=== PATIENT | female | born 1960 | race Caucasian/White ===

== ENCOUNTER → 2024-12-23 11:55 | Outpatient (BNVA) | payer MEDICARE, SELFPAY | PROVIDERS: PCP Nurse Practitioner Family; Visit Provider Nurse Practitioner Family | DX: R73.03 Prediabetes (principal) | CPT/HCPCS: 80053; 80061; 82306; 82607; 83036; 84443; 85025 ==

== ENCOUNTER 2024-12-29 14:55 | Outpatient (CLI) | payer MEDICARE, SELFPAY ==
--- NOTE | 2024-12-29 15:30 | XR_ITS ---
WS: [id number] SCREENING DEXA SCAN [employer] CLINICAL INFORMATION: Z78.0 - Asymptomatic menopausal state COMPARISON: None. FINDINGS: The L1-L4 bone mineral density measures 1.340 g/cm2. This corresponds to a T score score of 1.3 and Z score of 2.7. Left femoral neck bone mineral density measures 0.799 g/cm2. This corresponds to a T score of -1.7 and Z score of -0.6. Right femoral neck bone mineral density measures 0.798 g/cm2. This corresponds to a T score -1.7of and Z score of -0.6. Mean femoral neck bone mineral density measures 0.798 g/cm2. This corresponds to a T score of -1.7 and Z score of -0.6. XR/XR DEXA axial skeleton* [id number] IMPRESSION: Normal bone mineralization lumbar spine. Osteopenia femoral necks. Patient's FRAX calculated 10 year probability for major osteoporotic fracture i s 8.6% and osteoporotic hip fracture is 1.4%.
== END 2024-12-29 14:56 | disposition home or self-care (01) ==
PROVIDERS: PCP Nurse Practitioner Family; Visit Provider Nurse Practitioner Family
DX: Z78.0 Asymptomatic menopausal state (principal); M85.88 Other specified disorders of bone density and structure, other site
CPT/HCPCS: 77080

== ENCOUNTER 2025-01-04 19:29 | Emergency (ER) | payer MEDICARE, SELFPAY ==
[2025-01-04 19:31] VITALS: BP 135/81; PULSE 91; RESP 16; TEMP 36.8; O2SAT 98
--- NOTE | 2025-01-04 19:38 | CTR_ITS ---
PROCEDURE INFORMATION: Exam: CT Abdomen And Pelvis With Contrast Exam date and time: 01/04/2025 7:58 PM Age: 64 years old Clinical indication: Abdominal pain; Generalized; Additional info: Abd pain TECHNIQUE: Imaging protocol: Computed tomography of the abdomen and pelvis with contrast. Radiation optimization: All CT scans at this facility use at least one of these dose optimization techniques: automated exposure control; mA and/or kV adjustment per patient size (includes targeted exams where dose is matched to clinical indication); or iterative reconstruction. Contrast material: OMNI 350; Contrast volume: 100 ml; Contrast route: INTRAVENOUS (IV); COMPARISON: No relevant prior studies available. RADIATION DOSE METRICS: Total DLP (mGy-cm): 520.3 FINDINGS: Lungs: Lung bases are clear. No pleural effusion. Liver: Normal. No mass. Gallbladder and biliary ducts: Normal. No calcified stones. No ductal dilation. Pancreas: Normal. No ductal dilation. Spleen: Normal. No splenomegaly. Adrenal glands: Normal. No mass. Kidneys and ureters: Normal. No hydronephrosis. Stomach and bowel: Unremarkable. No obstruction. No mucosal thickening. Appendix: No evidence of appendicitis. Intraperitoneal space: Unremarkable. No free air. No significant fluid collection. Vasculature: Unremarkable. No abdominal aortic aneurysm. Lymph nodes: Unremarkable. No enlarged lymph nodes. Urinary bladder: Unremarkable as visualized. Reproductive: Unremarkable as visualized. Bones/joints: Unremarkable. No acute fracture. Soft tissues: Unremarkable. CT/CT abdomen pelvis w con* [id number] IMPRESSION: No acute findings.
--- NOTE | 2025-01-04 19:39 | W.ED.ABDPA2 ---
HPI - Abdominal Pain General: Chief Complaint: Abdominal Pain Stated Complaint: Possible Food Poison Time Seen by Provider: 01/04/25 19:37 Source: patient Mode of arrival: ambulatory Limitations: no limitations History of Present Illness: 64-year-old female states she ate fish for lunch since in the been having vomiting along with nausea and abdominal cramping. States she had multiple episodes of vomiting denies any worse or improving factors denies any fevers. Associated Symptoms: Reports nausea and vomiting; Denies chills, diarrhea, dysuria and fever(s) Related Data Home Medications ?Medication ?Instructions ?Recorded ?Confirmed naproxen sodium 220 mg capsule 220 mg PO BID PRN 10/09/19 12/23/24 (Aleve) Previous Rx's ?Medication ?Instructions ?Recorded hydrocodone 5 mg-acetaminophen 325 1 tab PO Q6H PRN pain #14 tabs 01/04/25 mg tablet ondansetron 4 mg disintegrating 4 mg PO Q6H PRN nausea and 01/04/25 tablet vomiting #14 tabs Allergies Allergy/AdvReac Type Severity Reaction Status Date / Time No Known Allergies Allergy Verified 12/23/24 10:22 Review of Systems Const: Denies: fever(s), chills, body aches or change in appetite ENMT: Denies: throat pain or dental pain Card: Denies: chest pain Resp: Denies: dyspnea GI: Reports: abdominal pain, nausea and vomiting; Denies: diarrhea : Denies: dysuria Musc: Denies: neck pain or back pain Skin/Breast: Denies: rash Neuro: Denies: headache(s) PFSH ED PFSH: Surgical History Hx of right knee surgery Hx of tonsillectomy Family History (Updated 12/23/24 @ 10:28 by Trudy Alexander) Mother Uterine cancer Diabetes Father Diabetes Stroke Social History Smoking and tobacco/nicotine status: current every day tobacco/nicotine user (1 08/13 PPD) cigarettes Packs smoked per day: 1.5 Years cigarettes smoked: 47 Alcohol intake: current Alcohol intake frequency: holidays/special occasions only Alcohol type: beer and other Substance/Drug Use: never Lives independently: Yes Household members: spouse Marital status: service: No Current occupational status: retired Current gender identity: Female Anitra/Restoration: Catholic Special anitra needs: No Agree to transfusion: Yes Physical Exam Const: COMMON NORMALS: no acute distress, patient oriented x3 and healthy appearing HENMT: COMMON NORMALS: normocephalic and atraumatic HEAD & SCALP: normocephalic and atraumatic Neck/C-Spine: COMMON NORMALS: full ROM and supple Chest: COMMONS NORMALS: normal inspection of the chest Resp: COMMON NORMALS: normal respiratory effort, No retractions, No use of accessory muscles and clear to auscultation bilaterally AUSCULTATION: clear to auscultation bilaterally Cardio: COMMON NORMALS: regular rate, regular rhythm and No murmurs present (Cardio) RATE: regular rate RHYTHM: regular rhythm GI: COMMON NORMALS: Normal to inspection, nondistended, normoactive bowel sounds present, Soft to palpation, non-tender and no masses PALPATION: Yes Soft to palpation Extremity: COMMON NORMALS: normal to inspection and full ROM Neuro: COMMON NORMALS: patient oriented x3, moves all extremities and no focal motor deficits Psych: COMMON NORMALS: mental status grossly normal, Normal thought process present and cooperative THOUGHT PROCESS: Normal thought process present Skin: COMMON NORMALS: no rashes or lesions noted and no wounds GENERAL SKIN EXAM: no rashes or lesions noted Course Vital Signs: Vital signs: Vital Signs Temperature 98.2 F 01/04/25 19:31 Pulse Rate 81 01/04/25 20:38 Respiratory Rate 16 01/04/25 20:38 Blood Pressure 137/70 01/04/25 20:38 Pulse Oximetry 95 01/04/25 20:38 Oxygen Delivery Me thod Room Air 01/04/25 20:38 MDM - Abdominal Pain Medical Decision Making Patient presents with abdominal pain along with vomiting she feels much improved here after meds. She does have an elevated lipase level likely mild pancreatitis CT showed no signs of pancreatitis I did offer her admission she states she wants to go home she is to do a full liquid diet will prescribe her pain and nausea medicine she is return if worsening she understands agrees to plan. Medical Records I reviewed the patient's medical records. Lab Data I reviewed the patient's lab results. 01/04/25 19:48 01/04/25 19:48 Labs/Radiology: Radiology Impressions Abdomen/Pelvis CT 01/04/25 19:38 IMPRESSION: No acute findings. Laboratory Results WBC 10.38 10^3/uL (3.29-11.43) 01/04/25 19:48 RBC 4.66 10^6/uL (3.85-5.65) 01/04/25 19:48 Hgb 14.70 g/dL (11.27-16.99) 01/04/25 19:48 Hct 43.9 % (36-47) 01/04/25 19:48 MCV 94.2 fl (85-98) 01/04/25 19:48 MCH 31.5 pg (27-33) 01/04/25 19:48 MCHC 33.5 g/dL (30-55) 01/04/25 19:48 RDW 13.2 % (12.1-15.1) 01/04/25 19:48 Plt Count 335 10^3/cmm (157-399) 01/04/25 19:48 MPV 10.0 fL (7.4-10.4) 01/04/25 19:48 Neut % (Auto) 84.3 % 01/04/25 19:48 Lymph % (Auto) 9.9 % 01/04/25 19:48 [place] % (Auto) 4.9 % 01/04/25 19:48 Eos % (Auto) 0.2 % 01/04/25 19:48 Baso % (Auto) 0.4 % 01/04/25 19:48 Neut # (Auto) 8.75 10^3/uL (1.8-7.7) H 01/04/25 19:48 Lymph # (Auto) 1.0 10^3/uL (0.8-4.8) 01/04/25 19:48 [place] # (Auto) 0.5 10^3/uL (0.2-0.9) 01/04/25 19:48 Eos # (Auto) 0.0 10^3/uL (0.0-0.8) 01/04/25 19:48 Baso # (Auto) 0.0 10^3/uL (0.0-0.1) 01/04/25 19:48 Nucleated RBC % (auto) 0 % 01/04/25 19:48 Nucleated RBCs # 0.0 /100WBC 01/04/25 19:48 Sodium 139 mmol/L (136-145) 01/04/25 19:48 Potassium 4.2 mmol/L (3.5-5.1) 01/04/25 19:48 Chloride 103 mmol/L (98-107) 01/04/25 19:48 Carbon Dioxide 26 mmol/L (22-29) 01/04/25 19:48 Anion Gap 14.2 (5-19) 01/04/25 19:48 BUN 31 mg/dL (8-23) H 01/04/25 19:48 Creatinine 0.6 mg/dL (0.5-0.9) 01/04/25 19:48 GFR Calculation 100.3 mL/min (90-130) 01/04/25 19:48 Glucose 153 mg/dL (65-115) H 01/04/25 19:48 Calculated Osmolality 298 mOsm/kg (285-295) H 01/04/25 19:48 Lactic Acid 0.9 mmol/L (0.5-2.2) 01/04/25 19:48 Calcium 9.7 mg/dL (8.5-10.5) 01/04/25 19:48 Total Bilirubin 0.2 mg/dL (0.15-1.2) 01/04/25 19:48 AST 13 U/L (0-32) 01/04/25 19:48 ALT 13 U/L (0-33) 01/04/25 19:48 Alkaline Phosphatase 63 U/L (35-105) 01/04/25 19:48 Total Protein 7.1 g/dL (6.6-8.7) 01/04/25 19:48 Albumin 4.2 g/dL (3.5-5.2) 01/04/25 19:48 Globulin 2.9 g/dL (1.3-4.6) 01/04/25 19:48 Lipase 743 U/L (13-60) H 01/04/25 19:48 All radiology interpretation(s) finalized by discharge Discharge Plan Discharge Patient Disposition: Home Clinical Impression: Vomiting, Pancreatitis Condition: Stable Prescriptions: New hydrocodone-acetaminophen 5-325 mg tablet 1 tab PO Q6H PRN (Reason: pain) Qty: 14 0RF ondansetron 4 mg tablet,disintegrating 4 mg PO Q6H PRN (Reason: nausea and vomiting) Qty: 14 0RF No Action naproxen sodium [Aleve] 220 mg capsule 220 mg PO BID PRN Discharge Orders: Discharge ED (Routine); Ordered 01/04/25 Ordered By: Chad Wright Referrals: Ale Schumacher FNP [Primary Care Provider, [facility]] - 1-3 days Discharge Diet: Advance as tolerated Discharge Activity: Resume usual activity Patient Instructions: Pancreatitis (ED), Opioid Safety Print Language: Sinhala Coding Level of Care Code ED Air Conditioner Installer Helper for Jayden Landeros
[2025-01-04 19:47] VITALS: RESP 17
[2025-01-04] MEDS: ondansetron 2 mg/ML SDV 2 mL 4 MG IVP (19:47)
[2025-01-04] MEDS: morphine 4 mg/mL SDV 1 mL IVP (19:47)
[2025-01-04] MEDS: sodium chloride 0.9% 1,000 ML 999 ML IV (19:48)
[2025-01-04] MEDS: iohexol 350 mg/mL 500 mL Btl (per mL) IV (20:00)
[2025-01-04 20:01] LABS: Basophils % 0.4 %; Eosinophils % 0.2 %; Hematocrit 43.9 % (36-47); Lymphocytes % 9.9 %; Mean Corpuscular HGB Conc 33.5 g/dL (30-55); Mean Corpuscular Hemoglobin 31.5 pg (27-33); Mean Corpuscular Volume 94.2 fl (85-98); Monocytes # 0.5 10^3/uL (0.2-0.9); Monocytes % 4.9 %; Neutrophils # 8.75 10^3/uL (1.8-7.7); Neutrophils % 84.3 %; Nucleated Red Blood Cells % 0 %; Platelet Count 335 10^3/cmm (157-399); Red Blood Count 4.66 10^6/uL (3.85-5.65); Red Cell Distribution Width 13.2 % (12.1-15.1); White Blood Count 10.38 10^3/uL (3.29-11.43)
[2025-01-04 20:19] LABS: Lactic Sepsis W/Reflex 0.9 mmol/L (0.5-2.2)
[2025-01-04 20:20] LABS: Alanine Aminotransferase 13 U/L (0-33); Albumin Level 4.2 g/dL (3.5-5.2); Alkaline Phosphatase 63 U/L (35-105); Anion Gap 14.2 (5-19); Aspartate Amino Transferase 13 U/L (0-32); Blood Urea Nitrogen 31 mg/dL (8-23); Calcium 9.7 mg/dL (8.5-10.5); Carbon Dioxide 26 mmol/L (22-29); Chloride 103 mmol/L (98-107); Creatinine Clr Calc Pharmacy 65.9224; Globulin 2.9 g/dL (1.3-4.6); Glomerular Filtration Rate 100.3 mL/min (90-130); Glucose 153 mg/dL (65-115); Osmolality Calculated 298 mOsm/kg (285-295); Potassium 4.2 mmol/L (3.5-5.1); Sodium 139 mmol/L (136-145); Total Bilirubin 0.2 mg/dL (0.15-1.2); Total Protein 7.1 g/dL (6.6-8.7)
[2025-01-04 20:28] LABS: Lipase 743 U/L (13-60)
--- NOTE | 2025-01-04 20:34 | XRR_ITS ---
PROCEDURE INFORMATION: Exam: XR Chest Exam date and time: 01/04/2025 8:52 PM Age: 64 years old Clinical indication: Pain; Chest pressure; Additional info: Cp TECHNIQUE: Imaging protocol: Radiologic exam of the chest. Views: 1 view. COMPARISON: CT abdomen pelvis w con* [id number] 01/04/2025 7:58 PM FINDINGS: Lungs: Unremarkable. No consolidation or mass. Pleural spaces: Unremarkable. No pleural effusion. No pneumothorax. Heart/Mediastinum: Unremarkable. No cardiomegaly. Bones/joints: Unremarkable. XR/XR chest 1V portable [id number] IMPRESSION: No acute findings.
[2025-01-04 20:38] VITALS: BP 137/70; PULSE 81; RESP 16; O2SAT 95
[2025-01-04] MEDS: ondansetron hcl ODT 4 mg Tab PO (21:05)
[2025-01-04] MEDS: HYDROcodone-acetaminophen 5-325 mg Tablet 1 TAB PO (21:05)
[2025-01-04 21:30] VITALS: BP 137/63; PULSE 72; RESP 16; O2SAT 97
== END 2025-01-04 21:32 | disposition home or self-care (01) ==
PROVIDERS: Emergency Medicine; Emergency Provider Emergency Medicine; PCP Nurse Practitioner Family
DX: K85.90 Acute pancreatitis without necrosis or infection, unspecified (principal); R11.10 Vomiting, unspecified
CPT/HCPCS: 71045; 74177; 80053; 83605; 83690; 85025; 96374; 96375; 99285; J2270; J2405; J7030; J9999; Q0162

== ENCOUNTER → 2025-03-16 13:12 | Outpatient (BNVA) | payer MEDICARE, SELFPAY | PROVIDERS: PCP Nurse Practitioner Family; Visit Provider Nurse Practitioner Family | DX: Z12.4 Encounter for screening for malignant neoplasm of cervix (principal) | CPT/HCPCS: 87624 ==

== ENCOUNTER 2025-03-17 09:44 | Outpatient (CLI) | payer MEDICARE, SELFPAY ==
--- NOTE | 2025-03-17 09:49 | CT_ITS ---
WS: [id number] LDCT LUNG CANCER SCREENING HISTORY: F17.210 - Nicotine dependence, cigarettes, uncomplicated TECHNIQUE: Axial imaging performed from the apices to 1 cm below the costophrenic angles. Coronal and sagittal reformats are submitted with axial MIP series. All CT scans at [facility] use at least one of these dose optimization techniques: automated exposure control; mA and/or kV adjustment per patient size (includes targeted exams where dose is matched to clinical indication); or iterative reconstruction. DLP: 50.12 mGy.cm DIvol: Mean CTDIvol: 0.90 (mGy) COMPARISON: None available. Diagnostic quality: Satisfactory Lungs: Well-aerated lungs. No mass or pulmonary nodule. No pneumonia. No endobronchial lesions. Heart: Normal size heart with no pericardial effusion.. Other findings: Minimal atherosclerosis aorta. Normal size pulmonary artery. No mediastinal or hilar adenopathy. Mild increase in thoracic kyphosis. CT/CT lung screening [id number] IMPRESSION: LUNG-RADS: 1-Negative FOLLOW UP: 12 Month: Continue annual screening with LDCT OTHER FINDINGS (S MODIFIER): None.
== END 2025-03-17 09:45 | disposition home or self-care (01) ==
LOC: RAD 09:45
PROVIDERS: PCP Nurse Practitioner Family; Visit Provider Nurse Practitioner Family
DX: F17.210 Nicotine dependence, cigarettes, uncomplicated (principal); I70.0 Atherosclerosis of aorta
CPT/HCPCS: 71271

== ENCOUNTER 2025-04-01 14:41 | Outpatient (CLI) | payer MEDICARE, SELFPAY ==
--- NOTE | 2025-04-01 14:40 | MM_ITS ---
WS: [id number] SCREENING DIGITAL BREAST TOMOSYNTHESIS MAMMOGRAM WITH CAD HISTORY: Z12.39 - Encounter for other screening for malignant neop... COMPARISON: None available. Bilateral CC and MLO with tomosynthesis and synthetic mammography submitted. Computer aided detection analyzed. Breast composition: There are scattered areas of fibroglandular density. Well- circumscribed high density round mass in the mid RIGHT breast near 6:00 measures 11 x 10 x 12 mm. There are additional small benign calcifications. Scattered asymmetries. MM/MM scr BI tomosynthesis [id number] IMPRESSION: BI-RADS: 0 - Incomplete: Need additional imaging evaluation. FOLLOW UP: Need Additional Imaging Recommendation: Limited ultrasound RIGHT breast.
== END 2025-04-01 14:42 | disposition home or self-care (01) ==
PROVIDERS: PCP Nurse Practitioner Family; Visit Provider Nurse Practitioner Family
DX: Z12.31 Encounter for screening mammogram for malignant neoplasm of breast (principal)
CPT/HCPCS: 77063; 77067

== ENCOUNTER 2025-04-26 09:24 | Outpatient (CLI) | payer MEDICARE, SELFPAY ==
--- NOTE | 2025-04-26 09:30 | US_ITS ---
WS: [id number] ULTRASOUND RIGHT BREAST, limited HISTORY: Follow-up screening mammogram. COMPARISON: 04/01/2025 TECHNIQUE: 2-D and Doppler. Ovoid hypoechoic mass in the RIGHT breast at 6:00, 3 cm from the nipple is identified. This corresponds in size and location to the mammographic abnormality. This is not a simple cyst. There is no through transmission. The wall is thin and there is no increased vascularity. Favor this is probably benig n. Mass measures 1.2 x 1.2 x 0.5 cm. US/US breast RT limited* [id number] IMPRESSION: BI-RADS: 3- Probably Benign FOLLOW-UP: 6 Month Follow-up Recommend RIGHT breast ultrasound follow-up in 6 months. Suspect complex cyst.
== END 2025-04-26 09:25 | disposition home or self-care (01) ==
LOC: RAD 09:25
PROVIDERS: PCP Nurse Practitioner Family; Visit Provider Nurse Practitioner Family
DX: R92.8 Other abnormal and inconclusive findings on diagnostic imaging of breast (principal); N63.15 Unspecified lump in the right breast, overlapping quadrants
CPT/HCPCS: 76642